=== PATIENT | female | born 1990 | race Caucasian/White ===

== ENCOUNTER 2022-03-31 03:59 | Inpatient (IN) | payer MEDICAID ==
[2022-03-31] MEDS ORDERED: Celecoxib 200 MG Cap PO ONE (06:00)
[2022-03-31] MEDS ORDERED: Acetaminophen 500 MG Tab PO ONE (06:00)
[2022-03-31] MEDS ORDERED: Dextrose 5%-Lactated Ringers 1,000 ML IV SCH (06:00)
[2022-03-31] MEDS ORDERED: Scopolamine 1.5 MG Transdermal Patch TOP SCH (06:00)
[2022-03-31 06:15] LABS: ESTIMATED GFR > 60 (>60)
[2022-03-31] MEDS ORDERED: cefOXitin 2 GM Vial ONE (06:30)
[2022-03-31] MEDS ORDERED: Bupivacaine 0.5%/EPINEPHrine 1:200,000 50 ML MDV ONE (06:31)
[2022-03-31] MEDS ORDERED: cefOXitin 2 GM in Sodium Chloride 0.9% 50 ML IV ONE (07:00)
[2022-03-31] MEDS ORDERED: Glycopyrrolate 0.2 MG/ML 5 ML MDV ONE (07:08)
[2022-03-31] MEDS ORDERED: fentaNYL 250 MCG/5 ML SDV ONE ×2 (07:08→07:28)
[2022-03-31] MEDS ORDERED: Neostigmine Methylsulfate 1 MG/ML 5 ML Syringe ONE (07:08)
[2022-03-31] MEDS ORDERED: Rocuronium 50 MG/5 ML Vial ONE (07:08)
[2022-03-31] MEDS ORDERED: Propofol 200 MG/20 ML SDV ONE (07:08)
[2022-03-31] MEDS ORDERED: Succinylcholine 200 MG/10 ML MDV ONE (07:08)
[2022-03-31] MEDS ORDERED: Ondansetron 4 MG/2 ML SDV ONE (07:08)
[2022-03-31] MEDS ORDERED: Dexamethasone 4 MG/ML SDV ONE (07:08)
[2022-03-31] MEDS ORDERED: Ketamine 500 MG/5 ML MDV IV SCH (07:30)
[2022-03-31] MEDS ORDERED: Ketamine 18 MG in Sodium Chloride 0.9% 19.82 ML IV SCH (07:30)
[2022-03-31] MEDS ORDERED: Lactated Ringers 1,000 ML ONE (07:43)
[2022-03-31] MEDS ORDERED: fentaNYL 100 MCG/2 ML SDV ONE ×2 (08:16→09:18)
[2022-03-31] MEDS ORDERED: Labetalol 20 MG/4 ML Syringe ONE (08:22)
[2022-03-31] MEDS ORDERED: Ondansetron 4 MG/2 ML SDV IVPUSH ONE (09:39)
[2022-03-31] MEDS ORDERED: 50% Dextrose in Water 50 ML Syringe IVPUSH PRN (09:49)
[2022-03-31] MEDS ORDERED: Glucagon,Human Recombinant 1 MG Vial IM PRN (09:49)
[2022-03-31] MEDS ORDERED: hydrOXYzine HCL 100 MG/2 ML SDV IM ONE (09:55)
[2022-03-31] MEDS ORDERED: Insulin Regular, Human 100 Units/ML 3 ML Vial IVPUSH ONE (10:05)
[2022-03-31] MEDS: Lactated Ringers 1,000 ML IV SCH ×2 (10:45→16:46)
[2022-03-31] MEDS: Dextrose 5%-Lactated Ringers 1,000 ML IV SCH ×2 (10:45→16:46)
[2022-03-31 10:56] LABS: HEMOGLOBIN A1C 6.2 % (4.5-6.2)
[2022-03-31] MEDS ORDERED: Cyclobenzaprine 10 MG Tab PO PRN (11:40)
[2022-03-31] MEDS ORDERED: Acetaminophen 500 MG Tab PO PRN (12:00)
[2022-03-31] MEDS ORDERED: hydrOXYzine HCL 100 MG/2 ML SDV IM PRN (12:00)
[2022-03-31] MEDS ORDERED: Ondansetron 4 MG/2 ML SDV IVPUSH PRN (12:00)
[2022-03-31] MEDS ORDERED: Metoclopramide 10 MG/2 ML SDV IVPUSH PRN (12:00)
[2022-03-31] MEDS ORDERED: diphenhydrAMINE 50 MG/ML SDV IVPUSH PRN (12:00)
[2022-03-31] MEDS ORDERED: HYDROmorphone 0.5 MG/0.5 ML Syringe IVPUSH PRN (12:00)
[2022-03-31] MEDS ORDERED: HYDROmorphone 1 MG/ML Syringe IV PRN (12:00)
[2022-03-31] MEDS ORDERED: Labetalol 20 MG/4 ML Syringe IVPUSH PRN (12:00)
[2022-03-31] MEDS ORDERED: Pantoprazole 40 MG Vial IVPUSH SCH (14:00)
[2022-03-31] MEDS: cefOXitin 2 GM in Sodium Chloride 0.9% 50 ML IV SCH ×2 (14:27→19:30)
[2022-03-31] MEDS: Acetaminophen 500 MG Tab PO SCH ×2 (14:28→21:46)
[2022-03-31] MEDS ORDERED: MVI, Adult with Vitamin K 10 ML, Thiamine 200 MG, Zinc/Copper/Manganese/Selenium 1 ML i... IV SCH ×4 (16:00)
[2022-03-31] MEDS: Heparin Sodium 5,000 Units/ML Vial SUBCUT SCH (18:21)
[2022-03-31] MEDS: oxyCODONE 5 MG Tab PO PRN (18:21)
[2022-03-31] MEDS ORDERED: Lactated Ringers 1,000 ML IV SCH (22:30)
[2022-04-01] MEDS: Lactated Ringers 1,000 ML IV SCH ×2 (00:39→13:42)
[2022-04-01] MEDS: cefOXitin 2 GM in Sodium Chloride 0.9% 50 ML IV SCH ×4 (01:30→19:33)
[2022-04-01] MEDS ORDERED: Iopamidol 612 MG/ML 50 ML SDV IV PRN (04:46)
[2022-04-01] MEDS: traMADol 50 MG Tab PO PRN ×2 (05:11→22:42)
[2022-04-01] MEDS: Acetaminophen 500 MG Tab PO SCH ×3 (05:12→22:42)
[2022-04-01] MEDS: Heparin Sodium 5,000 Units/ML Vial SUBCUT SCH ×2 (05:13→17:38)
[2022-04-01] MEDS ORDERED: hydrOXYzine HCl 25 MG Tab PO PRN (07:35)
[2022-04-01] MEDS ORDERED: Celecoxib 200 MG Cap PO SCH (09:00)
[2022-04-01] MEDS: oxyCODONE 5 MG Tab PO PRN (09:29)
[2022-04-01] MEDS: SCOPOLAMINE PATCH CHECK TOP SCH (10:03)
[2022-04-01] MEDS: Ondansetron 4 MG Tab.DIS PO PRN ×2 (15:14→19:32)
[2022-04-01] MEDS ORDERED: MVI, Adult with Vitamin K 10 ML, Thiamine 200 MG, Zinc/Copper/Manganese/Selenium 1 ML i... IV SCH ×4 (16:00)
[2022-04-01] MEDS ORDERED: Pantoprazole 40 MG Delayed-Release Granules 1 Packet PO SCH (16:30)
[2022-04-02] MEDS: Acetaminophen 500 MG Tab PO SCH (05:28)
[2022-04-02] MEDS: Heparin Sodium 5,000 Units/ML Vial SUBCUT SCH (05:29)
[2022-04-02] MEDS ORDERED: Cyanocobalamin (Vitamin B12) 1,000 MCG/ML SDV IM ONE (09:00)
[2022-04-02] MEDS: SCOPOLAMINE PATCH CHECK TOP SCH (09:11)
== END 2022-04-02 12:05 | disposition home or self-care (01) | DRG 621 ==
LOC: JP.SDS 05:14 → EDSTATUS 07:15 → JP.MS 09:00
PROVIDERS: ADMIT Surgery; ATTEND Surgery
PROC: 0D194ZB Bypass Duodenum to Ileum, Percutaneous Endoscopic Approach (ICD-10-PCS; principal; 2022-03-31)
PROC: 0FB24ZX Excision of Left Lobe Liver, Percutaneous Endoscopic Approach, Diagnostic (ICD-10-PCS; 2022-03-31)
PROC: 0BQT4ZZ Repair Diaphragm, Percutaneous Endoscopic Approach (ICD-10-PCS; 2022-03-31)
DX: E66.01 Morbid (severe) obesity due to excess calories (principal); Z68.42 Body mass index [BMI] 45.0-49.9, adult; E11.9 Type 2 diabetes mellitus without complications; F32.A Depression, unspecified; J45.909 Unspecified asthma, uncomplicated; F41.1 Generalized anxiety disorder; G43.709 Chronic migraine without aura, not intractable, without status migrainosus; R16.0 Hepatomegaly, not elsewhere classified; K44.9 Diaphragmatic hernia without obstruction or gangrene; F90.9 Attention-deficit hyperactivity disorder, unspecified type; Z79.899 Other long term (current) drug therapy; Z88.8 Allergy status to other drugs, medicaments and biological substances; Z88.2 Allergy status to sulfonamides; Z87.891 Personal history of nicotine dependence
CPT/HCPCS: 36415; 74240; 74240-26; 80053; 82947; 83036; 83735; 84100; 85027; 86850; 86900; 86901; 88307; 88313; A9270-GY; C9113; J0171; J0330; J0694; J1100; J1170; J1644; J1815-GY; J2405; J2704; J2710; J2795; J3010; J3410; J3411; J3420; J3490; J7120; J7121; Q0162; Q9967

== ENCOUNTER 2023-01-02 07:06 | Day surgery (SDC) | payer MEDICAID ==
[~2023-01-02 07:06] MED LIST: Lactated Ringers 1,000 ML IV ONE
[2023-01-02] MEDS ORDERED: Midazolam 1 MG/ML 2 ML SDV ONE (07:22)
[2023-01-02] MEDS ORDERED: Propofol 200 MG/20 ML SDV ONE (07:22)
[2023-01-02] MEDS ORDERED: fentaNYL 100 MCG/2 ML SDV ONE (07:22)
[2023-01-02] MEDS ORDERED: Cyanocobalamin (Vitamin B12) 1,000 MCG/ML SDV IM ONE (08:00)
[2023-01-02] MEDS ORDERED: Glycopyrrolate 0.2 MG/ML 2 ML SDV IVPUSH ONE (08:30)
[2023-01-02] MEDS ORDERED: MVI, Adult with Vitamin K 10 ML, Thiamine 200 MG, Chromium/Copper/Mang/Selen/Zn 1 ML in... IV ONE ×4 (09:00)
[2023-01-02] MEDS ORDERED: ferumoxytoL 510 MG in Sodium Chloride 0.9% 100 ML IV ONE (12:20)
[2023-01-02] MEDS ORDERED: Sodium Chloride 0.9% 1,000 ML IV SCH (12:25)
== END 2023-01-02 12:40 | disposition home or self-care (01) ==
LOC: JP.SDS 07:06
PROVIDERS: ATTEND Surgery
DX: K21.9 Gastro-esophageal reflux disease without esophagitis (principal); I25.10 Atherosclerotic heart disease of native coronary artery without angina pectoris; J45.909 Unspecified asthma, uncomplicated; Z20.822 Contact with and (suspected) exposure to COVID-19; Z98.890 Other specified postprocedural states; Z98.0 Intestinal bypass and anastomosis status; Z88.2 Allergy status to sulfonamides; Z91.040 Latex allergy status; Z88.8 Allergy status to other drugs, medicaments and biological substances; Z88.1 Allergy status to other antibiotic agents
CPT/HCPCS: 43239; 87081; 87635; J2250; J2704; J3010; J3411; J3420; J7120; U0002

== ENCOUNTER 2023-01-09 07:23 | Inpatient (IN) | payer MEDICAID ==
[~2023-01-09 07:23] MED LIST changes: +Bupivacaine 0.5% 50 ML MDV ONE; -Lactated Ringers 1,000 ML IV ONE; +Lidocaine 1% with EPINEPHrine 1:100,000 50 ML MDV ONE; +Meropenem 500 MG SDV ONE; +cefOXitin 2 GM Vial ONE
[2023-01-09] MEDS ORDERED: Celecoxib 200 MG Cap PO ONE (08:30)
[2023-01-09] MEDS: Dextrose 5%-Lactated Ringers 1,000 ML IV SCH ×2 (08:37→12:59)
[2023-01-09] MEDS ORDERED: Ondansetron 4 MG/2 ML SDV ONE (08:44)
[2023-01-09] MEDS ORDERED: fentaNYL 250 MCG/5 ML SDV ONE (08:44)
[2023-01-09] MEDS ORDERED: Propofol 200 MG/20 ML SDV ONE (08:44)
[2023-01-09] MEDS ORDERED: Dexamethasone 4 MG/ML SDV ONE (08:44)
[2023-01-09] MEDS ORDERED: Neostigmine Methylsulfate 1 MG/ML 5 ML Syringe ONE (08:44)
[2023-01-09] MEDS ORDERED: Succinylcholine 200 MG/10 ML MDV ONE (08:44)
[2023-01-09] MEDS ORDERED: Rocuronium 50 MG/5 ML Vial ONE (08:44)
[2023-01-09] MEDS ORDERED: Glycopyrrolate 0.2 MG/ML 5 ML MDV ONE (08:44)
[2023-01-09] MEDS ORDERED: cefOXitin 2 GM in Sodium Chloride 0.9% 50 ML IV ONE (09:00)
[2023-01-09] MEDS ORDERED: Ketamine 18 MG in Sodium Chloride 0.9% 19.82 ML IV SCH (09:00)
[2023-01-09] MEDS ORDERED: Ketamine 500 MG/5 ML MDV IV SCH (09:00)
[2023-01-09] MEDS ORDERED: fentaNYL 100 MCG/2 ML SDV ONE (10:02)
[2023-01-09] MEDS ORDERED: fentaNYL 50 MCG/ML SDV IVPUSH ONE (12:00)
[2023-01-09] MEDS ORDERED: hydrOXYzine HCl 50 MG/ML SDV IM ONE (12:00)
[2023-01-09] MEDS ORDERED: Cyclobenzaprine 10 MG Tab PO PRN (13:13)
[2023-01-09] MEDS ORDERED: Dextrose 5%-Lactated Ringers 1,000 ML IV SCH (13:15)
[2023-01-09] MEDS ORDERED: traMADol 50 MG Tab PO PRN (14:00)
[2023-01-09] MEDS ORDERED: Labetalol 20 MG/4 ML Syringe IVPUSH PRN (14:00)
[2023-01-09] MEDS ORDERED: Metoclopramide 10 MG/2 ML SDV IVPUSH PRN (14:00)
[2023-01-09] MEDS ORDERED: HYDROmorphone 1 MG/ML Syringe IV PRN (14:00)
[2023-01-09] MEDS ORDERED: oxyCODONE 5 MG Tab PO PRN (14:00)
[2023-01-09] MEDS ORDERED: Acetaminophen 500 MG Tab PO PRN (14:00)
[2023-01-09] MEDS ORDERED: Ondansetron 4 MG/2 ML SDV IVPUSH PRN (14:00)
[2023-01-09] MEDS ORDERED: diphenhydrAMINE 50 MG/ML SDV IVPUSH PRN (14:00)
[2023-01-09] MEDS ORDERED: hydrOXYzine HCl 50 MG/ML SDV IM PRN (14:00)
[2023-01-09] MEDS ORDERED: HYDROmorphone 0.5 MG/0.5 ML Syringe IVPUSH PRN (14:00)
[2023-01-09] MEDS: Acetaminophen 500 MG Tab PO SCH ×2 (14:26→21:08)
[2023-01-09] MEDS ORDERED: Pantoprazole 40 MG Vial IVPUSH SCH (15:00)
[2023-01-09] MEDS: cefOXitin 2 GM in Sodium Chloride 0.9% 50 ML IV SCH ×2 (15:33→21:09)
[2023-01-09] MEDS ORDERED: Iron Sucrose Complex 500 MG in Sodium Chloride 0.9% 250 ML IV ONE (16:00)
[2023-01-09] MEDS ORDERED: Hydrocortisone Sodium Succinate 100 MG/2 ML SDV IV PRN (16:00)
[2023-01-09] MEDS ORDERED: diphenhydrAMINE 50 MG/ML SDV IV PRN (16:00)
[2023-01-09] MEDS ORDERED: MVI, Adult with Vitamin K 10 ML, Thiamine 200 MG, Zinc/Copper/Manganese/Selenium 1 ML i... IV SCH ×12 (16:00→21:00)
[2023-01-09] MEDS ORDERED: Famotidine 20 MG/2 ML SDV IV PRN (16:00)
[2023-01-09] MEDS: Heparin Sodium 5,000 Units/ML Vial SUBCUT SCH (17:03)
[2023-01-10] MEDS: cefOXitin 2 GM in Sodium Chloride 0.9% 50 ML IV SCH (03:03)
[2023-01-10] MEDS ORDERED: Iopamidol 612 MG/ML 30 ML SDV PO STA (03:46)
[2023-01-10] MEDS: Acetaminophen 500 MG Tab PO SCH ×4 (04:29→21:42)
[2023-01-10] MEDS: Heparin Sodium 5,000 Units/ML Vial SUBCUT SCH ×3 (04:29→18:04)
[2023-01-10] MEDS ORDERED: Dextrose 5%-Lactated Ringers 1,000 ML IV SCH (07:45)
[2023-01-10] MEDS: Celecoxib 200 MG Cap PO SCH ×2 (08:48→20:42)
[2023-01-10] MEDS ORDERED: methylPREDNISolone Sodium Succinate 125 MG/2 ML SDV IV ONE (09:45)
[2023-01-10] MEDS ORDERED: Famotidine 20 MG/2 ML SDV IV ONE (09:45)
[2023-01-10] MEDS ORDERED: Hydrocortisone Sodium Succinate 100 MG/2 ML SDV IV PRN (10:00)
[2023-01-10] MEDS ORDERED: diphenhydrAMINE 50 MG/ML SDV IV PRN (10:00)
[2023-01-10] MEDS ORDERED: Iron Sucrose Complex 500 MG in Sodium Chloride 0.9% 250 ML IV ONE (10:00)
[2023-01-10] MEDS ORDERED: Famotidine 20 MG/2 ML SDV IV PRN (10:00)
[2023-01-10] MEDS ORDERED: MVI, Adult with Vitamin K 10 ML, Thiamine 200 MG, Zinc/Copper/Manganese/Selenium 1 ML i... IV SCH ×4 (16:00)
[2023-01-10] MEDS ORDERED: Pantoprazole 40 MG Tab.CR PO SCH (16:30)
[2023-01-11 05:13] LABS: ESTIMATED GFR 118 mL/min (>60)
[2023-01-11] MEDS: Acetaminophen 500 MG Tab PO SCH (05:22)
[2023-01-11] MEDS: Heparin Sodium 5,000 Units/ML Vial SUBCUT SCH (05:23)
[2023-01-11] MEDS: Celecoxib 200 MG Cap PO SCH (08:48)
[2023-01-11] MEDS ORDERED: Cyanocobalamin (Vitamin B12) 1,000 MCG/ML SDV IM ONE (09:00)
== END 2023-01-11 10:45 | disposition home or self-care (01) | DRG 331 ==
LOC: JP.MS 07:23
PROVIDERS: ADMIT Surgery; ATTEND Surgery
PROC: 0DB80ZZ Excision of Small Intestine, Open Approach (ICD-10-PCS; principal; 2023-01-09)
DX: K21.9 Gastro-esophageal reflux disease without esophagitis (principal); E11.43 Type 2 diabetes mellitus with diabetic autonomic (poly)neuropathy; K31.84 Gastroparesis; J45.909 Unspecified asthma, uncomplicated; F41.1 Generalized anxiety disorder; Z90.49 Acquired absence of other specified parts of digestive tract; Z88.2 Allergy status to sulfonamides; Z91.040 Latex allergy status; Z79.899 Other long term (current) drug therapy
CPT/HCPCS: 36415; 74240; 74240-26; 80053; 82947; 83735; 84100; 85025; 88307; A9270-GY; C9113; J0171; J0330; J0694; J1100; J1644; J1756; J2020; J2185; J2405; J2704; J2710; J2795; J2930; J3010; J3410; J3411; J3420; J3490; J7050; J7121; Q9967